=== PATIENT | female | born 1995 | race Native Hawaiian/Other Pacific Islander ===

== ENCOUNTER 2023-08-18 19:40 | Emergency (ER) | payer MEDICAID ==
[~2023-08-18] VITALS: Ht 162.6 cm; Wt 72.6 kg
[2023-08-18 20:00] VITALS: BP_SYST 123; PULSE 72; RESP 18; TEMP 97.8; O2SAT 99
[2023-08-18 20:32] LABS: BASOPHILS # (AUTO) 0.1 K/uL (0.0-0.2); BASOPHILS % (AUTO) 0.5 % (0.0-2.0); EOSINOPHILS # (AUTO) 0.3 K/uL (0.0-0.4); EOSINOPHILS % (AUTO) 2.6 % (0.0-4.0); HEMOGLOBIN 13.2 g/dL (12.0-16.0); LYMPHOCYTES # (AUTO) 2.3 K/uL (1.0-5.5); LYMPHOCYTES % (AUTO) 23.1 % (20.5-51.5); MEAN CORPUSCULAR HEMOGLOBIN 29 pg (27-31); MEAN CORPUSCULAR HGB CONC 34 % (32-36); MEAN CORPUSCULAR VOLUME 86 fL (79.0-98.0); MONOCYTES # (AUTO) 0.7 K/uL (0.0-1.0); NEUTROPHILS # (AUTO) 6.7 K/uL (1.8-7.7); NEUTROPHILS % (AUTO) 66.8 % (40.0-70.0); PLATELET COUNT (AUTO) 405 K/uL (130-430); RED BLOOD CELL COUNT(AUTO) 4.52 MIL/uL (4.2-6.2)
[2023-08-18 20:44] LABS: ALANINE AMINOTRANSFERASE 20 U/L (12-78); ALBUMIN 3.4 g/dL (3.4-4.8); ANION GAP 8 (5-15); ASPARTATE AMINOTRANSFERASE 10 U/L (10-37); BILIRUBIN,DIRECT < 0.1 mg/dL (0.0-0.3); CALCIUM 8.4 mg/dL (8.4-11.0); CARBON DIOXIDE 27 mmol/L (23-29); CHLORIDE 104 mmol/L (98-107); CREATININE 0.57 mg/dL (0.55-1.30); GFR AFRICAN AMERICAN 162 mL/min (>90); GFR NON AFRICAN-AMERICAN 134 mL/min (>90); GLUCOSE 91 mg/dL (74-106); LIPASE 41 U/L (16-77); POTASSIUM 4.1 mmol/L (3.5-5.1); SODIUM SERUM 139 mmol/L (136-145); TOTAL BILIRUBIN 0.2 mg/dL (0.0-1.0); TOTAL PROTEIN, SERUM 7.5 g/dL (6.4-8.3); UREA NITROGEN, BLOOD 15 mg/dL (8-21)
[2023-08-18 23:35] LABS: BILIRUBIN,URINE NEGATIVE (NEGATIVE); CLARITY/URINE CLEAR (CLEAR); COLOR,URINE YELLOW (YELLOW); GLUCOSE,URINE NEGATIVE (NEGATIVE); KETONES,URINE NEGATIVE (NEGATIVE); LEUKOCYTE ESTERASE ,URINE 1+ (NEGATIVE); NITRITE, URINE NEGATIVE (NEGATIVE); PROTEIN URINE NEGATIVE (NEGATIVE); UROBILINOGEN,URINE 0.2 (0.2-1.0)
[2023-08-18 23:38] LABS: BLOOD, URINE TRACE (NEGATIVE)
[2023-08-18 23:45] LABS: BACTERIA,URINE None Seen /HPF (None Seen); RBC,URINE 0-3 /HPF (0-3); YEAST,URINE Few /HPF (None Seen)
[2023-08-18] MEDS ORDERED: FAMO40TA71 PO (23:46)
[2023-08-18 23:47] VITALS: BP_SYST 115; PULSE 82; RESP 19; TEMP 97.4; O2SAT 97
== END 2023-08-18 23:47 | disposition home or self-care (01) ==
LOC: SED 19:40
DX: K29.70 Gastritis, unspecified, without bleeding (principal); R10.12 Left upper quadrant pain; Z88.2 Allergy status to sulfonamides; Z79.899 Other long term (current) drug therapy
CPT/HCPCS: 36415; 76705; 80048; 80076; 81000; 81001; 81015; 81025; 83690; 84702; 85025; 99284

== ENCOUNTER 2023-12-24 15:03 | Emergency (ER) | payer MEDICAID ==
[~2023-12-24] VITALS: Ht 160 cm; Wt 74.4 kg
[~2023-12-24 15:03] MED LIST: FAMO40TA71 PO
[2023-12-24 15:13] VITALS: BP_SYST 120; PULSE 89; RESP 17; TEMP 98.6; O2SAT 98
[2023-12-24] MEDS: KETOROLAC TROMETHAMINE 30 MG VIAL IM ONE (16:04)
[2023-12-24] MEDS: HYDROcodone/ACETAMIN 5-325 MG TAB (NORCO/ VICODIN) PO ONE (16:10)
[2023-12-24] MEDS ORDERED: HYDR-3917 PO (17:56)
[2023-12-24] MEDS ORDERED: ONDA-8 TL (18:07)
[2023-12-24 18:30] VITALS: BP_SYST 118; PULSE 86; RESP 18; TEMP 98.5; O2SAT 96
[2023-12-24] MEDS: ONDANSETRON 4 MG ODT TAB PO ONE (18:30)
== END 2023-12-24 18:30 | disposition home or self-care (01) ==
LOC: SED 15:03
DX: G89.29 Other chronic pain (principal); M54.50 Low back pain, unspecified; Z88.2 Allergy status to sulfonamides; Z79.899 Other long term (current) drug therapy
CPT/HCPCS: 99285; 72131; 81025; 96372; Q0162; J1885